=== PATIENT | male | born 1965 | race Caucasian/White ===

== ENCOUNTER 2019-07-29 16:19 | Emergency (ER) | payer MEDICARE ==
[~2019-07-29] VITALS: Ht 180.3 cm; Wt 115.2 kg
[~2019-07-29 16:19] MED LIST: medical marijuana
[2019-07-29] MEDS ORDERED: triamcinolone acetonide 40mg/ml inj IM ONE (17:35)
[2019-07-29] MEDS ORDERED: METH4TAB3 PO (17:55)
[2019-07-29 18:14] VITALS: BP 176/97
== END 2019-07-29 18:17 | disposition home or self-care (01) ==
LOC: ER 16:22
DX: L40.9 Psoriasis, unspecified (principal); R51 Headache; M79.601 Pain in right arm; M79.602 Pain in left arm; G89.29 Other chronic pain; F12.90 Cannabis use, unspecified, uncomplicated; Z98.890 Other specified postprocedural states; Z79.899 Other long term (current) drug therapy
CPT/HCPCS: 96372; 99283; J3301

== ENCOUNTER 2021-03-03 10:54 | Emergency (ER) | payer MEDICARE, OTHER ==
[~2021-03-03] VITALS: Ht 180.3 cm; Wt 100.0 kg
[~2021-03-03 10:54] MED LIST changes: +METH4TAB3 PO
[2021-03-03 11:38] LABS: BASOPHILS % (AUTO) 0.4 % (0-1); EOSINOPHILS # (AUTO) 0.7 X10'3 (0-0.9); EOSINOPHILS % (AUTO) 8.5 % (0-6); HEMATOCRIT 45.4 % (42.0-52.0); HEMOGLOBIN 14.9 g/dl (14.0-17.9); LYMPHOCYTES % (AUTO) 25.8 % (21-51); MEAN CORPUSCULAR HEMOGLOBIN 28.6 PG (27.0-31.0); MEAN CORPUSCULAR HGB CONC 32.9 g/dL (33.0-36.5); MEAN CORPUSCULAR VOLUME 86.9 FL (78-98); MEAN PLATELET VOLUME 8.3 FL (7.4-10.4); MONOCYTES # (AUTO) 0.6 X10'3 (0-0.9); MONOCYTES % (AUTO) 7.3 % (2-12); NEUTROPHILS # (AUTO) 4.5 X10'3 (1.8-7.7); PLATELET COUNT 208 X10'3 (140-440); RED BLOOD COUNT 5.23 X10'6 (4.70-6.10); RED CELL DISTRIBUTION WIDTH 13.4 % (11.5-14.5); WHITE BLOOD COUNT 7.8 X10'3 (4.5-11.0)
[2021-03-03 11:56] LABS: ALANINE AMINOTRANSFERASE 24 U/L (12-78); ALBUMIN 3.7 G/DL (3.4-5.0); ALBUMIN/GLOBULIN RATIO 0.9 (1.1-1.5); ALKALINE PHOSPHATASE 95 IU/L (46-116); ANION GAP 11 (8-16); ASPARTATE AMINO TRANSFERASE 14 U/L (10-37); BILIRUBIN,TOTAL 0.4 MG/DL (0.1-1.0); BLOOD UREA NITROGEN 14 MG/DL (7-18); BUN/CREATININE RATIO 15.4 (5.4-32.0); CALCIUM 9.1 MG/DL (8.5-10.1); CHLORIDE 107 MMOL/L (99-107); CREATININE 0.91 MG/DL (0.60-1.10); GLUCOSE 88 MG/DL (70-104); POTASSIUM 4.2 MMOL/L (3.5-5.1); SODIUM 144 MMOL/L (135-145); TOTAL CARBON DIOXIDE 26.1 MMOL/L (24-32); TOTAL PROTEIN 7.9 G/DL (6.4-8.2); eGFR 86 ML/MIN
[2021-03-03] MEDS ORDERED: methylPREDNISolone sod succ 125mg/2ml vial IM ONE (12:15)
[2021-03-03 13:22] VITALS: BP 136/84
== END 2021-03-03 13:24 | disposition home or self-care (01) ==
LOC: ER 10:55
DX: I10 Essential (primary) hypertension (principal); Z20.822 Contact with and (suspected) exposure to COVID-19; J98.01 Acute bronchospasm; R06.02 Shortness of breath; G89.29 Other chronic pain; F12.90 Cannabis use, unspecified, uncomplicated; Z98.890 Other specified postprocedural states; Z79.899 Other long term (current) drug therapy
CPT/HCPCS: 36415; 71045; 80053; 83880; 84484; 85025; 87635; 93005; 96372; 99285; C9803; J2930

== ENCOUNTER 2021-06-10 16:49 | Emergency (ER) | payer MEDICARE, MEDICAID ==
[~2021-06-10] VITALS: Ht 180.3 cm; Wt 100.0 kg
[2021-06-10] MEDS ORDERED: ibuprofen tablet 400 MG TABLET PO ONE (17:05)
[2021-06-10] MEDS ORDERED: HYDROcodone/acetaminophen 5mg/325mg tablet PO ONE (17:05)
[2021-06-10] MEDS ORDERED: morphine 4 MG/ML inj SYRINge IM ONE (17:10)
[2021-06-10] MEDS ORDERED: ondansetron 4mg rapidly disintigrating tab PO ONE (17:20)
[2021-06-10] MEDS ORDERED: propofol 10mg/ml 20ml vial IV ONE ×2 (18:35→19:30)
[2021-06-10 21:00] VITALS: BP 182/119
== END 2021-06-10 21:22 | disposition home or self-care (01) ==
LOC: ER 16:50
DX: S43.005A Unspecified dislocation of left shoulder joint, initial encounter (principal); W19.XXXA Unspecified fall, initial encounter; Y93.89 Activity, other specified; Y92.89 Other specified places as the place of occurrence of the external cause; Y99.8 Other external cause status
CPT/HCPCS: 23650; 73030; 73060; 94799; 96372; 99152; 99285; J2270; 94760